=== PATIENT | male | born 1970 | race Caucasian/White ===

== ENCOUNTER 2020-06-26 20:56 | Emergency (ER) | payer OTHER ==
[~2020-06-26] VITALS: Ht 182.9 cm; Wt 102.1 kg
[~2020-06-26 20:56] MED LIST: CYCLOBENZAPRINE10 MG PO; FLONASE ALLERG9.9 ML NAS; NORCO 5-325 TA1 EACH PO; VENTOLIN HFA18 GM INH
[2020-06-26] MEDS ORDERED: METFORMIN HCL500 MG PO (21:28)
[2020-06-26] MEDS ORDERED: LOPERAMIDE2 MG (21:35)
== END 2020-06-26 21:40 | disposition home or self-care (01) ==
LOC: ED 20:56
DX: S86.112A Strain of other muscle(s) and tendon(s) of posterior muscle group at lower leg level, left leg, initial encounter (principal); Z88.0 Allergy status to penicillin; Z79.899 Other long term (current) drug therapy; Z79.84 Long term (current) use of oral hypoglycemic drugs; X58.XXXA Exposure to other specified factors, initial encounter
CPT/HCPCS: 99283

== ENCOUNTER 2022-10-07 07:10 | Day surgery (SDC) | payer OTHER ==
[~2022-10-07] VITALS: Ht 182.9 cm; Wt 105.0 kg
[~2022-10-07 07:10] MED LIST changes: +LOPERAMIDE2 MG; +METFORMIN HCL500 MG PO; +OMEPRAZOLE20 MG PO; +VIAGRA25 MG PO
--- NOTE | 2022-10-07 09:02 | NUR ---
[facility]22 [facility]902 [facility] PACU SLEEPY WITH NO C/O'S. ABD SOFT.
--- NOTE | 2022-10-09 08:10 | OR ---
[facility] [address] [place], [place] [address] Signed DATE OF OPERATION: 10/07/2022 SURGEON: Mikhail Gamino MD PREOPERATIVE DIAGNOSIS: Persistent loose bowel movements, worse with fatty food. POSTOPERATIVE DIAGNOSIS: Normal-appearing colon and ilium except for a small polyp of sigmoid (excised). PROCEDURE: Total colonoscopy to cecum with cold morcellation, excision of polyp x1 and random biopsies including ileum, cecum, left colon, and rectum. ANESTHESIA: Intravenous sedation; fentanyl 150 mcg and Versed 5 mg. INDICATION: This 52-year-old white man is a patient of Tamar Simmons. He was seen by me initially for reflux disease and last seen in January of 2022 prior to recent evaluation September 23, 2022. The patient has had bouts of soft stool, but no watery stool or explosive diarrhea particularly. He has had some left upper abdominal pain as well. He notes that greasy food increases his symptoms of loose bowel movements and poorly formed bowel movements. He has no family history of colon cancer or colitis. He is admitted to undergo colonoscopy to better characterize the problem. He understand the risk of bleeding, infection, and perforation. FINDINGS: The prep was excellent. Complete colonoscopy was undertaken to the cecum without question. Intubation of the ileum was without problem as well. The ileum appeared normal overall. The colonic mucosa showed no sign of colitis, particularly. He had no diverticulosis. He did have one small polyp of the sigmoid, which was excised with cold morcellation technique. Biopsies were taken of the rectum, left colon, cecum and ilium to assess for microscopic colitis or other inflammatory process. DESCRIPTION OF PROCEDURE: The patient was brought to the endoscopy suite and placed in the lateral decubitus position, given intravenous sedation to the point of slurred speech and nystagmus. Full cardiopulmonary monitoring was maintained. Electronically Signed By: MIKHAIL GAMINO MD 10/09/22 0810 PATIENT NAME: JOSE ELIAS MALONE OPERATIVE REPORT DATE OF : 72 REPORT #: [id number] PHYSICIAN: MIKHAIL GAMINO MD PCP: CATRACHITA CEVALLOS NP REPORT IS CONFIDENTIAL AND NOT TO BE RELEASED WITHOUT AUTHORIZATION [facility] [address], [place] [address] Signed Digital rectal examination was performed which was normal. An Olympus video colonoscope was passed in the rectum and manipulated throughout the colon ultimately intubating the cecum. Ileocecal valve and appendiceal orifice were easily identified. The scope was easily passed into the ileum. Biopsies were taken of the mucosa, though it appeared normal overall. The scope was withdrawn and biopsies then taken of the cecum. Careful withdrawal of the scope showed no sign of abnormality. Biopsies were taken of the left colon and sigmoid small polyp was noted and this was excised with cold morcellation technique as well. A rectal biopsy was performed after retroflexed view. The scope was removed and the patient was taken to the recovery room in good condition. CONCLUDING DIAGNOSES: 1. Small polyp of sigmoid, not contributory to current symptoms. 2. Normal-appearing colon and ilium; await biopsy results to assure no evidence of microscopic colitis. PLAN: We will initiate loperamide 4 mg p.o. b.i.d. for the time being. We will see him back in 4 to 6 weeks and review his progress and pathology reports. Mikhail Gamino MD JM/JULIANL /[id number] cc: TOR [place] Copies: TAMAR SIMMONS ~ Electronically Signed By: MIKHAIL GAMINO MD 10/09/22 0810 PATIENT NAME: JOSE ELIAS MALONE OPERATIVE REPORT DATE OF : 72 REPORT #: [id number] PHYSICIAN: MIKHAIL GAMINO MD PCP: CATRACHITA CEVALLOS NP REPORT IS CONFIDENTIAL AND NOT TO BE RELEASED WITHOUT AUTHORIZATION
--- NOTE | 2022-10-14 08:08 | PATH ---
[facility] [address] [facility] [place], [place] [address] Signed SPECIMEN(S): A CECUM COLON BIOPSY SPECIMEN(S): B TERMINAL ILEUM SPECIMEN(S): C DESCENDING/LEFT COLON BIOPSY SPECIMEN(S): D SIGMOID POLYP SPECIMEN(S): E RECTUM SPECIMEN SOURCE: A. CECUM COLON BIOPSY B. TERMINAL ILEUM C. DESCENDING/LEFT COLON BIOPSY D. SIGMOID POLYP E. RECTUM CLINICAL HISTORY: Soft stools; diarrhea. FINAL PATHOLOGIC DIAGNOSIS: A. Colon, cecum, biopsy: - Colonic mucosa with no significant pathologic alteration. - Negative for chronic, active and microscopic colitis. B. Terminal ileum, biopsy: - Ileal mucosa with no significant pathologic alteration. - Negative for active inflammation and granulomas. C. Colon, descending/left, biopsy: - Colonic mucosa with no significant pathologic alteration. - Negative for chronic, active and microscopic colitis. D. Colon, sigmoid polyp, biopsy: - Hyperplastic polyp. E. Colon, rectum, biopsy: - Colonic mucosa with no significant pathologic alteration. - Negative for chronic, active and microscopic colitis. NRT:caw:C2NR MICROSCOPIC EXAMINATION: Histologic sections of all submitted blocks are examined by light microscopy. These findings, together with the gross examination, support the pathologic diagnosis. GROSS DESCRIPTION: Five specimens are received in five containers, labeled "DB." A. The specimen, labeled "DB, cecum colon biopsy," is received in formalin and PATIENT NAME: JOSE ELIAS MALONE PATHOLOGY DATE OF : 72 REPORT #: [id number] PHYSICIAN: FLORESITA PATHOLOGY PCP: CATRACHITA CEVALLOS NP REPORT IS CONFIDENTIAL AND NOT TO BE RELEASED WITHOUT AUTHORIZATION [facility] [address] [place], [place] [address] Signed consists of three gonsales soft tissue fragments that measure 0.3 to 0.6 cm in greatest dimension. The specimen is entirely submitted in cassette (A1). B. The specimen, labeled "DB, terminal ileum," is received in formalin and consists of three gonsales soft tissue fragments that measure 0.3 to 0.4 cm in greatest dimension. The specimen is entirely submitted in cassette (B1). C. The specimen, labeled "DB, descending/left colon biopsy," is received in formalin and consists of two gonsales soft tissue fragments that measure 0.3 to 0.4 cm in greatest dimension. The specimen is entirely submitted in cassette (C1). D. The specimen, labeled "DB, sigmoid polyp," is received in formalin and consists of two gonsales soft tissue fragments that measure 0.3 to 0.4 cm in greatest dimension. The specimen is entirely submitted in cassette (D1). E. The specimen, labeled "DB, rectum," is received in formalin and consists of three gonsales soft tissue fragments that measure 0.2 to 0.3 cm in greatest dimension. The specimen is entirely submitted in cassette (E1). HH (under the direct supervision of a pathologist) The Gross Description was prepared using a voice recognition system. The report was reviewed for accuracy; however, sound-alike word errors, addition and/or deletions may occur. If there is any question about this report, please contact Client Services. PERFORMING LABORATORY: The technical component was performed by [facility], [address] [place] [id number] (CLIA# [id number]). [facility] [address] [place] [address], [place] [address] (IA# [id number]). Diagnostician: Madeline Peña MD Pathologist Electronically Signed 10/10/2022 Copies: ~ PATIENT NAME: GINAJOSE ELIAS VALERO PATHOLOGY DATE OF : 72 REPORT #: [id number] PHYSICIAN: FLORESITA KENYON PCP: CATRACHITA CEVALLOS NP REPORT IS CONFIDENTIAL AND NOT TO BE RELEASED WITHOUT AUTHORIZATION
== END 2022-10-07 09:50 | disposition home or self-care (01) ==
LOC: DS 07:10 → OPS 07:10 → DS 08:30 → OPS 08:30 → DS 12-09 07:30
PROVIDERS: ATTEND Surgery
PROC: 0DBN8ZZ Excision of Sigmoid Colon, Via Natural or Artificial Opening Endoscopic (ICD-10-PCS; 2022-10-07)
PROC: 0DBH8ZZ Excision of Cecum, Via Natural or Artificial Opening Endoscopic (ICD-10-PCS; principal; 2022-10-07 08:30)
DX: R19.7 Diarrhea, unspecified (principal); K63.5 Polyp of colon; R10.12 Left upper quadrant pain; Z88.0 Allergy status to penicillin
CPT/HCPCS: 99153; G0500; J2250; J3010; J7121